=== PATIENT | male | born 1940 | race Hispanic/Latino ===

== ENCOUNTER 2018-02-16 10:48 | Emergency (ER) | payer MEDICARE ==
[2018-02-16 10:48] VITALS: BMI 32.5
--- NOTE | 2018-02-16 11:38 | ED PDOC ---
HPI: General Adult Time Seen by Provider: 02/16/18 11:14 Chief Complaint (Nursing): ENT Problem History Per: Patient Additional Complaint(s): Pt. states yesterday he woke up with dry blood on his nose. States he takes Coumadin 4mg daily for his "heart." Further states he contacted Dr. Mari today to see if he should take his daily dose of Coumadin but was instructed to come to ED instead for repeat blood work. Currently without any bleeding. Offers no complaints at this time. Denies headache, cough, congestion, fever, weakness. Past Medical History Reviewed: Historical Data, Nursing Documentation, Vital Signs Vital Signs: Last Vital Signs Temp 97.5 F L 02/16/18 11:28 Pulse 96 H 02/16/18 11:28 Resp 18 02/16/18 11:28 BP 139/86 02/16/18 11:28 Pulse Ox 99 02/16/18 11:28 - Medical History PMH: Arthritis, Atrial Fibrillation, CHF, Diabetes, HTN Denies: COPD, Hypercholesterolemia, Hypothyroidism, Chronic Kidney Disease, Rheumatoid Arthritis - Family History Family History: States: No Known Family Hx - Home Medications Home Medications: Ambulatory Orders Medication Instructions Recorded RX: Rosuvastatin Calcium [Crestor] 10 mg PO HS 06/01/14 Acetaminophen [Tylenol 325mg tab] 650 mg PO Q4 01/11/16 Amoxicillin/Clavulanate [Augmentin 1 tab PO BID #14 tab 01/15/16 875 MG-125 MG] Metronidazole [Flagyl] 500 mg PO Q8H #21 tablet 01/15/16 RX: MetFORMIN [glucoPHAGE] 1,000 mg PO BID #0 tab 01/15/16 RX: Metoprolol Tartrate [Lopressor] 100 mg PO BID #0 tab 01/15/16 RX: Multivit-Min/FA/Lycopen/Lutein 1 tab PO DAILY #0 tablet 01/15/16 [Centrum Silver Tablet] RX: Ranitidine HCl [Zantac] 150 mg PO BID #0 tablet 01/15/16 RX: SITagliptin [Januvia] 100 mg PO HS #0 tab 01/15/16 RX: Tamsulosin [Flomax] 0.4 mg PO BID #0 cap 01/15/16 RX: Triamterene/Hydrochlorothiazid 2 cap PO DAILY #0 capsule 01/15/16 [Triamterene-Hctz 37.5-25 mg Cp] RX: Warfarin [Coumadin] 4 mg PO HS #0 tab 01/15/16 - Allergies Allergies/Adverse Reactions: Allergies Allergy/AdvReac Type Severity Reaction Status Date / Time heparin Allergy RASH Verified 02/16/18 11:10 Review of Systems ROS Statement: Except As Marked, All Systems Reviewed And Found Negative Physical Exam - Physical Exam Appears: Positive for: Well, Non-toxic, No Acute Distress Head Exam: Positive for: ATRAUMATIC, NORMAL INSPECTION, NORMOCEPHALIC Skin: Positive for: Normal Color, Warm, Rash Eye Exam: Positive for: EOMI, Normal appearance, PERRL ENT: Positive for: Normal ENT Inspection, Other (no blood in nostrils; no septal hematoma b/l). Negative for: Pharyngeal Erythema, Tonsillar Exudate, Tonsillar Swelling Neck: Positive for: Normal, Painless ROM Cardiovascular/Chest: Positive for: Regular Rate, Rhythm. Negative for: Tachy cardia Respiratory: Positive for: Normal Breath Sounds Neurologic/Psych: Positive for: Alert, Oriented (x3). Negative for: Aphasia, Facial Droop - Laboratory Results Result Diagrams: 02/16/18 12:00 02/16/18 12:00 - ECG O2 Sat by Pulse Oximetry: 99 - Progress ED Course And Treament: Labs ordered. Case and results d/w Dr. Mari who recommends continuing Coumadin as previously precribed Coumadin 4mg daily. Pt. and informed of plan and both agree. Disposition - Clinical Impression Clinical Impression: Epistaxis - Patient ED Disposition Is Patient to be Admitted: No - Disposition Referrals: Karl Mari MD [Family Provider] - Disposition: Routine/Home Disposition Time: 13:00 Condition: STABLE Additional Instructions: CONTINUE TAKING YOUR COUMADIN PREVIOUSLY PRESCRIBED BY DR. MARI FOLLOW UP WITH DR. MARI FOR FURTHER EVALUATION RETURN TO ED IMMEDIATELY IF SYMPTOMS WORSEN EULA MADRIGAL, thank you for letting us take care of you today. Your provider was Luis Ly MD and you were treated for NOSE BLEED. The emergency medical care you received today was directed at your acute symptoms. If you were prescribed any medication, please fill it and take as directed. It may take several days for your symptoms to resolve. Return to the Emergency Department if your symptoms worsen, do not improve, or if you have any other problems. Please contact your doctor or call one of the physicians/clinics you have been referred to that are listed on the Patient Visit Information form that is included in your discharge packet. Bring any paperwork you were given at discharge with you along with any medications you are taking to your follow up visit. Our treatment cannot replace ongoing medical care by a primary care provider outside of the emergency department. Thank you for allowing the [facility] team to be part of your care today. If you had an X-Ray or CT scan: A Radiologist will review the ED reading if any change in treatment is needed we will contact you. If you had a blood, urine, or wound culture: It will take several days for the results, if any change in treatment is needed we will contact you. If you had an STI test: It will take 48 hours for the results. Please call after 1 week if you have not heard back. Instructions: Nosebleeds (DC) Forms: [employer] (Vietnamese)
[2018-02-16 12:29] LABS: BASO # 0.1 K/uL (0.0-0.2); BASO % 0.6 % (0.0-2.0); EOS # 0.2 K/uL (0.0-0.7); HEMOGLOBIN 13.6 g/dL (12.0-18.0); LYMPH # 1.1 K/uL (1.0-4.3); LYMPH % 11.7 % (20.0-40.0); MEAN CELL VOLUME 93.5 fl (80.0-94.0); MEAN CORPUSCULAR HGB CONC 34.2 g/dL (33.0-37.0); MEAN PLATELET VOLUME 8.6 fl (7.2-11.7); MONO # 0.5 K/uL (0.0-0.8); MONO % 5.5 % (0.0-10.0); NEUT # 7.4 K/uL (1.8-7.0); NEUT % 80.2 % (50.0-75.0); RBC 4.25 Mil/uL (4.40-5.90); RED CELL DISTRIBUTION WIDTH 13.7 % (11.5-14.5); WHITE BLOOD COUNT 9.2 K/uL (4.8-10.8)
[2018-02-16 12:35] LABS: INR 2.1; PROTHROMBIN TIME 23.8 Seconds (9.8-13.1)
[2018-02-16 12:38] LABS: PARTIAL THROMBOPLASTIN TIME 36.2 Seconds (25.6-37.1)
[2018-02-16 12:40] LABS: ALB/GLOB RATIO 1.4 (1.0-2.1); ALBUMIN 4.3 g/dL (3.5-5.0); ALT/SGPT 22 U/L (21-72); AST/SGOT 21 U/L (17-59); BLOOD UREA NITROGEN 9 mg/dl (9-20); CALCIUM 9.4 mg/dL (8.4-10.2); GFR NON-AFRICAN AMERICAN > 60
[2018-02-16 13:22] VITALS: BP 121/73; PULSE 86; RESP 19; TEMP 97.8
[2018-02-16 15:25] VITALS: O2SAT 99
== END 2018-02-16 13:15 | disposition home or self-care (01) ==
LOC: H.ER 10:48
DX: R04.0 Epistaxis (principal); E11.9 Type 2 diabetes mellitus without complications; Z79.84 Long term (current) use of oral hypoglycemic drugs; I11.0 Hypertensive heart disease with heart failure; I48.91 Unspecified atrial fibrillation; I50.9 Heart failure, unspecified; Z79.01 Long term (current) use of anticoagulants

== ENCOUNTER 2018-03-24 14:53 | Emergency (ER) | payer MEDICARE ==
[2018-03-24 14:54] VITALS: BMI 32.5
[2018-03-24 15:15] VITALS: RESP 18
--- NOTE | 2018-03-24 15:48 | ED PDOC ---
HPI: General Adult Time Seen by Provider: 03/24/18 15:45 Chief Complaint (Nursing): Lower Extremity Problem/Injury Chief Complaint (Provider): cellulitis History Per: Family (78 y/o male h/o DM sent by Dr. Mancilla for bloodwork/xry and iv antibiotics. No fevers/chills. Has had ongoing blisters on both feet.) Past Medical History Reviewed: Historical Data, Nursing Documentation, Vital Signs Vital Signs: Last Vital Signs Temp 97.9 F 03/24/18 15:11 Pulse 93 H 03/24/18 15:11 Resp 18 03/24/18 15:11 BP 164/77 H 03/24/18 15:11 Pulse Ox 98 03/24/18 15:11 - Medical History PMH: Arthritis, Atrial Fibrillation, CHF, Diabetes, HTN Denies: COPD, Hypercholesterolemia, Hypothyroidism, Chronic Kidney Disease, Rheumatoid Arthritis - Family History Family History: States: Unknown Family Hx - Home Medications Home Medications: Ambulatory Orders Medication Instructions Recorded Rosuvastatin Calcium [Crestor] 10 mg PO HS 06/01/14 MetFORMIN [glucoPHAGE] 1,000 mg PO BID #0 tab 01/15/16 Triamterene/Hydrochlorothiazid 2 cap PO DAILY #0 capsule 01/15/16 [Triamterene-Hctz 37.5-25 mg Cp] Donepezil [Aricept] 5 mg PO DAILY 03/24/18 Pantoprazole Sodium [Protonix] 40 mg PO DAILY 03/24/18 Ranitidine HCl [Zantac] 300 mg PO DAILY 03/24/18 SITagliptin [Januvia] 100 mg PO DAILY 03/24/18 Tamsulosin [Flomax] 0.4 mg PO DAILY 03/24/18 Valsartan/Hydrochlorothiazide 1 tab PO DAILY 03/24/18 [Diovan Hct 160-12.5 mg Tab] Warfarin [Coumadin] 4 mg PO DAILY 03/24/18 - Allergies Allergies/Adverse Reactions: Allergies Allergy/AdvReac Type Severity Reaction Status Date / Time heparin Allergy RASH Verified 03/24/18 15:10 Review of Systems ROS Statement: Except As Marked, All Systems Reviewed And Found Negative Physical Exam - Reviewed Nursing Documentation Reviewed: Yes Vital Signs Reviewed: Yes - Physical Exam Appears: Positive for: Well, Non-toxic, No Acute Distress Head Exam: Positive for: ATRAUMATIC, NORMAL INSPECTION, NORMOCEPHALIC Skin: Positive for: Normal Color, Warm, DRY Eye Exam: Positive for: EOMI, Normal appearance, PERRL ENT: Positive for: Normal ENT Inspection Neck: Positive for: Normal, Painless ROM Cardiovascular/Chest: Positive for: Regular Rate, Rhythm Respiratory: Positive for: CNT, Normal Breath Sounds Gastrointestinal/Abdominal: Positive for: Normal Exam, Soft Back: Positive for: Normal Inspection Extremity: Positive for: Normal ROM Neurologic/Psych: Positive for: Alert, Oriented - Laboratory Results Result Diagrams: 03/24/18 16:39 03/24/18 16:39 - ECG O2 Sat by Pulse Oximetry: 98 - Progress ED Course And Treament: SEEN BY PODIATRY RESIDENT. AFTER REVIEW OF XRY AND BLOODWORK AND DISCUSSION WITH DR. MANCILLA, SHE RECOMMENDS IV ZOSYN ONE DOSE AND PATIENT TO F/U WITH DR MANCILLA. NO ANTIBIOTICS RECOMMENDED. Disposition - Clinical Impression Clinical Impression: Wound of foot - Patient ED Disposition Is Patient to be Admitted: No - Disposition Disposition: Routine/Home Disposition Time: 17:50 Condition: FAIR Additional Instructions: FOLLOW UP WITH DR. MANCILLA Instructions: Wound Care (DC)
--- NOTE | 2018-03-24 16:21 | RAD ---
Date of service: 03/24/2018 HISTORY: routine COMPARISON: No prior. FINDINGS: LUNGS: Diminished inspiratory volume bilaterally. No definite infiltrates. PLEURA: No significant pleural effusion identified, no pneumothorax apparent. CARDIOVASCULAR: Calcific atherosclerotic changes are seen related to the thoracic aorta. Interval cardiomegaly not excluded. No pulmonary vascular congestion. OSSEOUS STRUCTURES: No significant abnormalities. VISUALIZED UPPER ABDOMEN: Normal. OTHER FINDINGS: None. IMPRESSION: Interval cardiomegaly not excluded. No interval pulmonary vascular congestion. No acute infiltrates bilaterally.
--- NOTE | 2018-03-24 16:27 | CP.PCM.CON ---
History of Present Illness - History of Present Illness History of Present Illness: Podiatry consult note for Dr. Mancilla, 78 yo male seen and evaluated in the ED for multiple toe blisters on both feet. Patient is seen AAOx3 and in NAD accompanied by his . Patients states he has noticed these blisters in the last week possibly due to shoe gear. Patients states he walks around barefoot at home. Patient went to Dr. Mancilla, and was advised to come to the ED for further workup. Patient denies f/n/v/sob or pain. PMD: Dr. 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 Social: lives with , denies tobacco use and illicit drugs, occasional alcohol Past Patient History - Past Medical History & Family History Past Medical History?: Yes - Past Social History Smoking Status: Never Smoked - CARDIAC Hx Atrial Fibrillation: Yes Hx Congestive Heart Failure: Yes Hx Hypercholesterolemia: No Hx Hypertension: Yes - PULMONARY Hx Chronic Obstructive Pulmonary Disease (COPD): No - NEUROLOGICAL Hx Neurological Disorder: No Other/Comment: carotid stenosis - HEENT Hx HEENT Problems: No - RENAL Hx Chronic Kidney Disease: No - ENDOCRINE/METABOLIC Hx Hypothyroidism: No - HEMATOLOGICAL/ONCOLOGICAL Hx Blood Disorders: No - INTEGUMENTARY Hx Dermatological Problems: No - MUSCULOSKELETAL/RHEUMATOLOGICAL Hx Arthritis: Yes Hx Rheumatoid Arthritis: No - GASTROINTESTINAL Hx Gastrointestinal Disorders: No - GENITOURINARY/GYNECOLOGICAL Hx Genitourinary Disorders: No - PSYCHIATRIC Hx Psychophysiologic Disorder: No Hx Substance Use: No - SURGICAL HISTORY Hx Surgeries: Yes Other/Comment: carotis endarterectomy,right shoulder surgery with prosthesis - ANESTHESIA Hx Anesthesia: Yes Hx Anesthesia Reactions: No Hx Malignant Hyperthermia: No Meds Allergies/Adverse Reactions: Allergies Allergy/AdvReac Type Severity Reaction Status Date / Time heparin Allergy RASH Verified 03/24/18 15:10 Physical Exam - Constitutional Appears: Well, Non-toxic, No Acute Distress - Head Exam Head Exam: ATRAUMATIC, NORMOCEPHALIC - Eye Exam Eye Exam: Normal appearance Pupil Exam: NORMAL ACCOMODATION - ENT Exam ENT Exam: Mucous Membranes Moist - Extremities Exam Additional comments: Bilateral lower extremity: vascular: DP/pT 1/4 b/l, CFT <3 secs x 10, TG warm to cool, no edema or erythema noted derm: multiple serous fluid filled blisters noted on tip of toes 1-4 on right and 1-5 on left, no edema or erythema noted, no other open lesions noted, no clinical signs of infection ortho: no pain with palpation to the foot. neuro: protective sensation grossly intact. - Neurological Exam Neurological exam: Alert, Oriented x3 Results - Vital Signs Recent Vital Signs: Last Vital Signs Temp 97.9 F 03/24/18 15:11 Pulse 93 H 03/24/18 15:11 Resp 18 03/24/18 15:11 BP 164/77 H 03/24/18 15:11 Pulse Ox 98 03/24/18 15:48 - Labs Result Diagrams: 03/24/18 16:39 03/24/18 16:39 Assessment & Plan - Assessment and Plan (Free Text) Assessment: 78 yo male seen and evaluated for multiple serous fluid filled blisters on b/l feet, not infected. Plan: Patient seen and evaluated Chart, labs and vitals reviewed; absent leukocytosis afebrile X-rays reviewed; no acute osseous changes noted Blisters drained using sterile suture removal kit Foot dressed with betadine, and DSD Zosyn stat ordered Surgical shoe dispensed to the patient for both feet Patient advised to continue to follow up with Dr. Mancilla in his office Thank you for the consult
--- NOTE | 2018-03-24 16:29 | RAD ---
Date of service: 03/24/2018 PROCEDURE: Bilateral Feet Radiographs. HISTORY: r/o osteomyelitis COMPARISON: None. FINDINGS: BONES: No acute fracture, subluxation or dislocation identified bilaterally. No erosive changes bilaterally. Pes planus likely present both feet based on lateral projections. Calcifications are identified in the bilateral feet soft tissues as well as surrounding the ankles bilaterally. No erosive bony changes are appreciate that would indicate definitive osteomyelitis. MRI is available for follow-up as clinically warranted. Advanced degenerative changes seen is in the 1st metatarsophalangeal joints, right greater than left with lesser degenerative changes seen throughout the bilateral feet diffusely. Old healed fracture of the proximal phalanx right 3rd digit suggested. Bilateral plantar calcaneal spurring is identified. OTHER FINDINGS: None. IMPRESSION: No overt radiographic pattern to suggest osteomyelitis on acute or subacute basis old healed fracture suspected at the proximal phalanx right 3rd digit. Follow-up MRI is available for added characterization if clinically warranted. Diffuse degenerative disease throughout both the but particularly the bilateral 1st metatarsophalangeal joints, right greater than left.
[2018-03-24 16:41] LABS: BASO % 0.4 % (0.0-2.0); EOS # 0.2 K/uL (0.0-0.7); EOS % 1.8 % (0.0-4.0); HEMOGLOBIN 13.7 g/dL (12.0-18.0); LYMPH # 1.2 K/uL (1.0-4.3); MEAN CELL VOLUME 93.9 fl (80.0-94.0); MEAN CORPUSCULAR HEMOGLOBIN 31.7 pg (27.0-31.0); MEAN CORPUSCULAR HGB CONC 33.8 g/dL (33.0-37.0); MEAN PLATELET VOLUME 8.3 fl (7.2-11.7); MONO # 0.7 K/uL (0.0-0.8); MONO % 9.1 % (0.0-10.0); NEUT # 6.1 K/uL (1.8-7.0); NEUT % 73.7 % (50.0-75.0); NRBC % 0.1 % (0.0-0.0); RBC 4.31 Mil/uL (4.40-5.90); WHITE BLOOD COUNT 8.2 K/uL (4.8-10.8)
[2018-03-24 16:45] LABS: VENOUS BLOOD GAS BASE EXCESS 8.6 mmol/L (0.0-2.0); VENOUS BLOOD GAS PCO2 59 mmHg (40-60); VENOUS BLOOD GAS PO2 18 mm/Hg (30-55); VENOUS BLOOD PH 7.39 (7.32-7.43)
[2018-03-24] MEDS ORDERED: Piperacillin/Tazobact 3.375 GM in Sodium Chloride 0.9% 100 ML IVPB STA (16:52)
[2018-03-24 16:55] LABS: ALB/GLOB RATIO 1.2 (1.0-2.1); ALBUMIN 4.1 g/dL (3.5-5.0); ALT/SGPT 19 U/L (21-72); AST/SGOT 18 U/L (17-59); BLOOD UREA NITROGEN 8 mg/dl (9-20); CALCIUM 9.4 mg/dL (8.4-10.2); GFR NON-AFRICAN AMERICAN > 60
[2018-03-24 17:18] LABS: SQUAMOUS EPITHIAL < 1 /hpf (0-5); URINE BILIRUBIN NEGATIVE (NEGATIVE); URINE BLOOD NEGATIVE (NEGATIVE); URINE GLUCOSE (UA) NEG (NEGATIVE); URINE LEUKOCYTE ESTERASE SMALL Leu/uL (Negative); URINE PROTEIN NEGATIVE (NEGATIVE); URINE UROBILINOGEN 0.2-1.0 mg/dL (0.2-1.0)
[2018-03-24] MEDS ORDERED: Sodium Chloride 0.9% 1,000 ML IV STA (17:32)
[2018-03-24 17:41] LABS: URINE CLARITY SLIGHTLY CLOUDY (Clear); URINE COLOR YELLOW (YELLOW)
[2018-03-24] MEDS ORDERED: Piperacillin/Tazobact 3.375 gm Inj IVPB ONE (17:42)
[2018-03-24 19:46] VITALS: BP 140/72; PULSE 71; TEMP 98; O2SAT 100
--- NOTE | 2018-03-25 10:04 | CARD ---
APPROVED REPORT Date of service: 03/24/2018 EKG Measurement Heart [id number] <Conclusion> Atrial fibrillation Left axis deviation Right bundle branch block Abnormal ECG
== END 2018-03-24 19:43 | disposition home or self-care (01) ==
LOC: H.ER 14:53
DX: R23.8 Other skin changes (principal); E11.9 Type 2 diabetes mellitus without complications; I11.0 Hypertensive heart disease with heart failure; Z88.8 Allergy status to other drugs, medicaments and biological substances
CPT/HCPCS: 71045; 73630; 80053; 81003; 82803; 85025; 87040; 87070; 87086; 93005; 96374; 99284; J2543; J7030

== ENCOUNTER 2018-07-03 18:52 | Observation (INO) | payer MEDICARE ==
[2018-07-03 18:52] VITALS: BMI 32.5
[2018-07-03] MEDS ORDERED: Sodium Chloride 0.9% 1,000 ML IV STA ×2 (20:18→21:21)
[2018-07-03 20:56] LABS: VENOUS BLOOD GAS BASE EXCESS 5.8 mmol/L (0.0-2.0); VENOUS BLOOD GAS PCO2 50 mmHg (40-60); VENOUS BLOOD GAS PO2 31 mm/Hg (30-55); VENOUS BLOOD PH 7.41 (7.32-7.43)
[2018-07-03 20:57] LABS: BASO # 0.1 K/uL (0.0-0.2); BASO % 0.5 % (0.0-2.0); EOS # 0.1 K/uL (0.0-0.7); EOS % 0.7 % (0.0-4.0); HEMOGLOBIN 12.4 g/dL (12.0-18.0); LYMPH # 1.1 K/uL (1.0-4.3); LYMPH % 9.9 % (20.0-40.0); MEAN CELL VOLUME 90.8 fl (80.0-94.0); MEAN CORPUSCULAR HEMOGLOBIN 31.8 pg (27.0-31.0); MEAN CORPUSCULAR HGB CONC 35.1 g/dL (33.0-37.0); MEAN PLATELET VOLUME 8.5 fl (7.2-11.7); MONO # 0.6 K/uL (0.0-0.8); MONO % 4.9 % (0.0-10.0); NEUT # 9.5 K/uL (1.8-7.0); PLATELET COUNT 174 K/uL (130-400); RED CELL DISTRIBUTION WIDTH 13.6 % (11.5-14.5); WHITE BLOOD COUNT 11.3 K/uL (4.8-10.8)
[2018-07-03 21:01] LABS: ALB/GLOB RATIO 1.3 (1.0-2.1); ALBUMIN 3.9 g/dL (3.5-5.0); ALT/SGPT 17 U/L (21-72); AST/SGOT 19 U/L (17-59); BLOOD UREA NITROGEN 8 mg/dl (9-20); GFR NON-AFRICAN AMERICAN > 60
[2018-07-03 21:05] LABS: INR 1.7; PROTHROMBIN TIME 19.1 Seconds (9.8-13.1)
[2018-07-03 21:08] LABS: PARTIAL THROMBOPLASTIN TIME 38.5 Seconds (25.6-37.1)
[2018-07-03 21:13] LABS: B-TYPE NATRIURETIC PEPTIDE 599 pg/ml (0-900)
--- NOTE | 2018-07-03 21:21 | ED PDOC ---
HPI:Nausea, Vomiting, Diarrhea Time Seen by Provider: 07/03/18 19:55 Chief Complaint (Nursing): GI Problem Chief Complaint (Provider): GI Problem History Per: Patient History/Exam Limitations: no limitations Onset/Duration Of Symptoms: Days (x 1) Current Symptoms Are (Timing): Still Present Associated Symptoms: Nausea, Vomiting, Other (weakness) Additional Complaint(s): 78 year old male with a history of diabetes, HTN, allergies, diabetic foot ulcers bilaterally, atrial fibrillation presents to the ED with worsening weakness and nausea today associated with one episode of vomiting this morning. According to his and son, today he was acting more tired and less active. Patient follows with plate setter for daily dressing changes on his ulcers. They report compliance with medications. His son states that patient has a poor diet. Denies syncope, chest pain and abdominal pain. PMD: Dr. Karl Mari Crystallizer Operator: Dr. Chau Past Medical History Reviewed: Historical Data, Nursing Documentation, Vital Signs Vital Signs: Last Vital Signs Temp 98.5 F 07/03/18 19:29 Pulse 122 H 07/03/18 19:29 Resp 16 07/03/18 19:29 BP 152/73 H 07/03/18 19:29 Pulse Ox 95 07/03/18 19:29 Primary Care Provider: [facility] - Medical History PMH: Arthritis, Atrial Fibrillation, CHF, Diabetes, HTN Denies: COPD, Hypercholesterolemia, Hypothyroidism, Chronic Kidney Disease, Rheumatoid Arthritis - Surgical History Surgical History: No Surg Hx - Family History Family History: States: Unknown Family Hx - Home Medications Home Medications: Ambulatory Orders Medication Instructions Recorded Rosuvastatin Calcium [Crestor] 10 mg PO HS 06/01/14 MetFORMIN [glucoPHAGE] 1,000 mg PO BID #0 tab 01/15/16 Donepezil [Aricept] 5 mg PO DAILY 03/24/18 Pantoprazole Sodium [Protonix] 40 mg PO DAILY 03/24/18 SITagliptin [Januvia] 100 mg PO DAILY 03/24/18 Tamsulosin [Flomax] 0.4 mg PO DAILY 03/24/18 Warfarin [Coumadin] 4 mg PO ASDIR 03/24/18 Montelukast Sodium [Singulair] 10 mg PO HS 07/03/18 Triamterene/Hydrochlorothiazid 1 cap PO DAILY 05/17/19 [Triamterene-Hctz 37.5-25 mg Cp] Warfarin Sodium [Jantoven] 6 mg PO ASDIR 07/03/18 Acetaminophen [Tylenol 325mg tab] 650 mg PO Q6 PRN tab 07/04/18 Cefdinir [Omnicef] 300 mg PO BID #10 cap 07/04/18 - Allergies Allergies/Adverse Reactions: Allergies Allergy/AdvReac Type Severity Reaction Status Date / Time heparin Allergy RASH Verified 07/03/18 19:29 Review of Systems ROS Statement: Except As Marked, All Systems Reviewed And Found Negative Constitutional: Positive for: Weakness. Negative for: Fever, Other (syncope) Cardiovascular: Negative for: Chest Pain Gastrointestinal: Positive for: Nausea, Vomiting (x 1) Physical Exam - Reviewed Nursing Documentation Reviewed: Yes Vital Signs Reviewed: Yes - Physical Exam Appears: Positive for: No Acute Distress Head Exam: Positive for: ATRAUMATIC, NORMAL INSPECTION, NORMOCEPHALIC Skin: Positive for: Normal Color, Warm, Dry Eye Exam: Positive for: EOMI, Normal appearance, PERRL Cardiovascular/Chest: Positive for: Regular Rate, Rhythm. Negative for: Murmur Respiratory: Positive for: Normal Breath Sounds. Negative for: Respiratory Distress Gastrointestinal/Abdominal: Positive for: Normal Exam (large abdomen), Soft. Negative for: Tenderness, Mass, Guarding, Rebound Extremity: Positive for: Swelling (bilateral chronic edema to the legs with well healing ulcers to heels bilateral and both hallux) Neurological/Psych: Positive for: Awake, Alert, Normal Tone, Oriented. Negative for: Motor/Sensory Deficits - Laboratory Results Result Diagrams: 07/04/18 04:52 07/04/18 04:52 Lab Results: pO2 31 mm/Hg (30-55) 07/03/18 20:45 VBG pH 7.41 (7.32-7.43) 07/03/18 20:45 VBG pCO2 50 mmHg (40-60) 07/03/18 20:45 VBG HCO3 28.4 mmol/L 07/03/18 20:45 VBG Total CO2 33.2 mmol/L (22-28) H 07/03/18 20:45 VBG O2 Sat (Calc) 63.9 % (40-65) 07/03/18 20:45 VBG Base Excess 5.8 mmol/L (0.0-2.0) H 07/03/18 20:45 VBG Potassium 3.8 mmol/L (3.6-5.2) 07/03/18 20:45 Sodium 127.0 mmol/L (132-148) L 07/03/18 20:45 Chloride 91.0 mmol/L (98-107) L 07/03/18 20:45 Glucose 208 mg/dL (75-110) H 07/03/18 20:45 Lactate 2.8 mmol/L (0.7-2.1) H 07/03/18 20:45 FiO2 21.0 % 07/03/18 20:45 PT 19.1 Seconds (9.8-13.1) H 07/03/18 20:45 INR 1.7 07/03/18 20:45 APTT 38.5 Seconds (25.6-37.1) H 07/03/18 20:45 Troponin I < 0.0120 ng/mL (0.00-0.120) 07/03/18 20:45 NT-Pro-B Natriuret Pep 599 pg/ml (0-900) 07/03/18 20:45 Total Bilirubin 0.6 mg/dl (0.2-1.3) 07/03/18 20:45 AST 19 U/L (17-59) 07/03/18 20:45 ALT 17 U/L (21-72) L 07/03/18 20:45 Alkaline Phosphatase 50 U/L (38-126) 07/03/18 20:45 Total Protein 6.9 G/DL (6.3-8.2) 07/03/18 20:45 Albumin 3.9 g/dL (3.5-5.0) 07/03/18 20:45 Globulin 2.9 gm/dL (2.2-3.9) 07/03/18 20:45 Albumin/Globulin Ratio 1.3 (1.0-2.1) 07/03/18 20:45 - ECG ECG: Positive for: Interpreted By Me, Viewed By Me ECG Rhythm: Positive for: Atrial Fibrillation O2 Sat by Pulse Oximetry: 95 (RA) Pulse Ox Interpretation: Normal Medical Decision Making Medical Decision Makin:17 MDM: Worsening weakness with episodes of nausea and vomiting Mild hyperglycemic Will given IV fluids Lab workup Reassess Most likely admission Scribe Attestation: Documented by Jennyfer Egan, acting as a scribe for Yadira Torres MD. Provider Scribe Attestation: All medical record entries made by the Scribe were at my direction and personally dictated by me. I have reviewed the chart and agree that the record accurately reflects my personal performance of the history, physical exam, medical decision making, and the department course for this patient. I have also personally directed, reviewed, and agree with the discharge instructions and disposition. Disposition - Clinical Impression Clinical Impression: Dehydration, Weakness, Wound of foot - Disposition Disposition Time: 21:49 Condition: STABLE
[2018-07-03 21:49] LABS: SQUAMOUS EPITHIAL < 1 /hpf (0-5); URINE BILIRUBIN NEGATIVE (NEGATIVE); URINE BLOOD NEGATIVE (NEGATIVE); URINE CLARITY SLIGHTY-CLOUDY (Clear); URINE COLOR YELLOW (YELLOW); URINE GLUCOSE (UA) NEG (NEGATIVE); URINE LEUKOCYTE ESTERASE TRACE Leu/uL (Negative); URINE PROTEIN NEGATIVE (NEGATIVE); URINE UROBILINOGEN 0.2-1.0 mg/dL (0.2-1.0)
[2018-07-03 21:54] LABS: EOSINOPHIL 1 % (0-7); LYMPHOCYTE 11 % (20-50); MONOCYTE 6 % (0-10); NEUTROPHIL 82 % (42-75); PLATELET ESTIMATE NORMAL (NORMAL); TOTAL CELLS COUNTED 100
[2018-07-03 21:56] LABS: URINE AMORPHOUS SEDIMENT FEW /ul (<OCC); URINE BACTERIA FEW (<OCC)
--- NOTE | 2018-07-03 22:46 | CP.PCM.HP ---
<Brittnee Garcia - Last Filed: 07/03/18 23:26> History of Present Illness - History of Present Illness History of Present Illness: CC: weakness HPI: 78 YO Male with PMHx of Afib on warfarin, NIDDM type 2, HTN, carotid stenosis (S/p repair), hx of HIT, dementia, presents to ED for weakness. a nd son present by bedside states that patient was at his normal state of health until today when he started feeling weaker then usual. states that he has not been eating or drinking all day, been nauseous on/off throughout the day and around 4 PM he had 1 episode of emesis (NBNB). Additionally, patient felt chills today and has been urinary more frequently then usual. Denies pain (chest/abdom en/general), no palpitations, dysuria, dyspnea. PMD: Dr. Mari Cardiology: Dr. Chau PMHx: Afib on warfarin, NIDDM type 2, HTN, carotid stenosis (s/p revascularization) Heparin Induce Thrombocytopenia, urinary incontinence/BPH SHx: right shoulder surgery Meds: Warfarin as per directions, 6mg on odd days and 4mg on even days Social: lives with , denies tobacco use and illicit drugs, occasional alcohol Allegery: Heparin--HIT Present on Admission - Present on Admission Any Indicators Present on Admission: No Review of Systems - Constitutional Constitutional: Chills. absent: Fever - Cardiovascular Cardiovascular: absent: Chest Pain, Dyspnea - Respiratory Respiratory: absent: Cough, Dyspnea - Gastrointestinal Gastrointestinal: absent: Abdominal Pain, Diarrhea, Vomiting - Genitourinary Genitourinary: Urinary Frequency. absent: Change in Urinary Stream, Dysuria - Neurological Neurological: Weakness Past Patient History - Past Medical History & Family History Past Medical History?: Yes - Past Social History Smoking Status: Never Smoked Alcohol: None Drugs: Denies Home Situation {Lives}: With Family - CARDIAC Hx Atrial Fibrillation: Yes Hx Congestive Heart Failure: Yes Hx Hypercholesterolemia: No Hx Hypertension: Yes - PULMONARY Hx Chronic Obstructive Pulmonary Disease (COPD): No - NEUROLOGICAL Hx Neurological Disorder: No Other/Comment: carotid stenosis - HEENT Hx HEENT Problems: No - RENAL Hx Chronic Kidney Disease: No - ENDOCRINE/METABOLIC Hx Hypothyroidism: No - HEMATOLOGICAL/ONCOLOGICAL Hx Blood Disorders: No - INTEGUMENTARY Hx Dermatological Problems: No - MUSCULOSKELETAL/RHEUMATOLOGICAL Hx Arthritis: Yes Hx Rheumatoid Arthritis: No - GASTROINTESTINAL Hx Gastrointestinal Disorders: No - GENITOURINARY/GYNECOLOGICAL Hx Genitourinary Disorders: No - PSYCHIATRIC Hx Psychophysiologic Disorder: No Hx Substance Use: No - SURGICAL HISTORY Hx Surgeries: Yes Other/Comment: carotis endarterectomy,right shoulder surgery with prosthesis - ANESTHESIA Hx Anesthesia: Yes Hx Anesthesia Reactions: No Hx Malignant Hyperthermia: No Meds Allergies/Adverse Reactions: Allergies Allergy/AdvReac Type Severity Reaction Status Date / Time heparin Allergy RASH Verified 07/03/18 19:29 Physical Exam - Constitutional Appears: No Acute Distress, Other (awake and alert ) - Head Exam Head Exam: NORMAL INSPECTION - Eye Exam Eye Exam: EOMI, Normal appearance - ENT Exam ENT Exam: Mucous Membranes Moist - Respiratory Exam Respiratory Exam: Clear to Auscultation Bilateral, NORMAL BREATHING PATTERN. absent: Wheezes - Cardiovascular Exam Cardiovascular Exam: REGULAR RHYTHM, +S1, +S2 - GI/Abdominal Exam GI & Abdominal Exam: Distended, Normal Bowel Sounds, Soft. absent: Tenderness (obese ) - Extremities Exam Extremities exam: Negative for: calf tenderness Additional comments: open diabetic food ulcerations noted, does not look infected - Back Exam Back exam: absent: CVA tenderness (L), CVA tenderness (R) - Neurological Exam Neurological exam: Alert - Skin Skin Exam: Dry, Intact, Pallor Results - Vital Signs Recent Vital Signs: Last Vital Signs Temp 98.5 F 07/03/18 19:29 Pulse 122 H 07/03/18 19:29 Resp 16 07/03/18 19:29 BP 152/73 H 07/03/18 19:29 Pulse Ox 95 07/03/18 21:27 - Labs Result Diagrams: 07/03/18 20:45 07/03/18 20:45 Labs: Laboratory Results - last 24 hr 07/03/18 07/03/18 07/03/18 20:45 20:45 20:45 WBC 11.3 H RBC 3.90 L Hgb 12.4 Hct 35.4 MCV 90.8 D MCH 31.8 H MCHC 35.1 RDW 13.6 Plt Count 174 MPV 8.5 Neut % (Auto) 84.0 H Lymph % (Auto) 9.9 L [place] % (Auto) 4.9 Eos % (Auto) 0.7 Baso % (Auto) 0.5 Neut # (Auto) 9.5 H Lymph # (Auto) 1.1 [place] # (Auto) 0.6 Eos # (Auto) 0.1 Baso # (Auto) 0.1 Neutrophils % (Manual) 82 H Lymphocytes % (Manual) 11 L Monocytes % (Manual) 6 Eosinophils % (Manual) 1 Platelet Estimate Normal RBC Morphology Normal PT 19.1 H INR 1.7 APTT 38.5 H pO2 VBG pH VBG pCO2 VBG HCO3 VBG Total CO2 VBG O2 Sat (Calc) VBG Base Excess VBG Potassium Sodium 128 L Chloride 88 L Glucose Lactate FiO2 Potassium 4.0 Carbon Dioxide 29 Anion Gap 15 BUN 8 L Creatinine 0.5 L Est GFR ( Amer) > 60 Est GFR (Non-Af Amer) > 60 Random Glucose 203 H Calcium 9.0 Total Bilirubin 0.6 AST 19 ALT 17 L Alkaline Phosphatase 50 Troponin I < 0.0120 NT-Pro-B Natriuret Pep 599 Total Protein 6.9 Albumin 3.9 Globulin 2.9 Albumin/Globulin Ratio 1.3 Venous Blood Potassium Urine Color Urine Clarity Urine pH Ur Specific [place] Urine Protein Urine Glucose (UA) Urine Ketones Urine Blood Urine Nitrate Urine Bilirubin Urine Urobilinogen Ur Leukocyte Esterase Urine RBC (Auto) Urine Microscopic WBC Ur Squamous Epith Cells Amorphous Sediment Urine Bacteria 07/03/18 07/03/18 20:45 21:05 WBC RBC Hgb Hct MCV MCH MCHC RDW Plt Count MPV Neut % (Auto) Lymph % (Auto) [place] % (Auto) Eos % (Auto) Baso % (Auto) Neut # (Auto) Lymph # (Auto) [place] # (Auto) Eos # (Auto) Baso # (Auto) Neutrophils % (Manual) Lymphocytes % (Manual) Monocytes % (Manual) Eosinophils % (Manual) Platelet Estimate RBC Morphology PT INR APTT pO2 31 VBG pH 7.41 VBG pCO2 50 VBG HCO3 28.4 VBG Total CO2 33.2 H VBG O2 Sat (Calc) 63.9 VBG Base Excess 5.8 H VBG Potassium 3.8 Sodium 127.0 L Chloride 91.0 L Glucose 208 H Lactate 2.8 H FiO2 21.0 Potassium Carbon Dioxide Anion Gap BUN Creatinine Est GFR ( Amer) Est GFR (Non-Af Amer) Random Glucose Calcium Total Bilirubin AST ALT Alkaline Phosphatase Troponin I NT-Pro-B Natriuret Pep Total Protein Albumin Globulin Albumin/Globulin Ratio Venous Blood Potassium 3.8 Urine Color Yellow Urine Clarity Slighty-cloudy Urine pH 7.0 Ur Specific [place] 1.013 Urine Protein Negative Urine Glucose (UA) Neg Urine Ketones Negative Urine Blood Negative Urine Nitrate Negative Urine Bilirubin Negative Urine Urobilinogen 0.2-1.0 Ur Leukocyte Esterase Trace Urine RBC (Auto) 1 Urine Microscopic WBC 6 H Ur Squamous Epith Cells < 1 Amorphous Sediment Few H Urine Bacteria Few H - EKG Data EKG Interpreted by: Myself Rate: Normal (A fib with a rate of 82) Assessment & Plan - Assessment and Plan (Free Text) Assessment: Assessment/Plan: 78 YO Male with PMHx of Afib on warfarin, NIDDM type 2, HTN, carotid stenosis (S/p repair), hx of HIT, dementia is admitted for weakness. Generalized Weakness, non-focal -likely 2/2 to poor PO intake and diet -will r/o infectious as cause -CXR no acute infiltrates appreciated -UA no sig findings, follow up Ucx and bcx -elevated lactic acid likely from dehydration, follow up procalcitonin -CT head no acute intracranial finding, age related changes, follow up official reading in AM -will cont with IV fluids -encourage PO -supplement with ensure PO Hyponatremia, Hypochloremia -corrected Na is approx 130 -likely 2/2 to poor PO intake and dehydration -replace with IV fluids -follow up AM labs -consider urine electrolytes if persists or worsen A fib -chronic -not on any PO as noted on med reconciliation for rate control -consider BB for rate control as noted in past admission -c/w warfarin -cardiology consulted; follow up recs NIDDM -controlled -c/w home meds -sliding scale -hypoglycemia protcol HTN -chronic -c/w home meds Foot ulcers -podiatry consulted -Wound care consulted DVT prolx -on warfarin <Cheo South - Last Filed: 07/04/18 00:32> Results - Vital Signs Recent Vital Signs: Last Vital Signs Temp 98.5 F 07/03/18 19:29 Pulse 122 H 07/03/18 19:29 Resp 16 07/03/18 19:29 BP 152/73 H 07/03/18 19:29 Pulse Ox 95 07/03/18 21:27 - Labs Result Diagrams: 07/03/18 20:45 07/03/18 20:45 Labs: Laboratory Results - last 24 hr 07/03/18 07/03/18 07/03/18 20:45 20:45 20:45 WBC 11.3 H RBC 3.90 L Hgb 12.4 Hct 35.4 MCV 90.8 D MCH 31.8 H MCHC 35.1 RDW 13.6 Plt Count 174 MPV 8.5 Neut % (Auto) 84.0 H Lymph % (Auto) 9.9 L [place] % (Auto) 4.9 Eos % (Auto) 0.7 Baso % (Auto) 0.5 Neut # (Auto) 9.5 H Lymph # (Auto) 1.1 [place] # (Auto) 0.6 Eos # (Auto) 0.1 Baso # (Auto) 0.1 Neutrophils % (Manual) 82 H Lymphocytes % (Manual) 11 L Monocytes % (Manual) 6 Eosinophils % (Manual) 1 Platelet Estimate Normal RBC Morphology Normal PT 19.1 H INR 1.7 APTT 38.5 H pO2 VBG pH VBG pCO2 VBG HCO3 VBG Total CO2 VBG O2 Sat (Calc) VBG Base Excess VBG Potassium Sodium 128 L Chloride 88 L Glucose Lactate FiO2 Potassium 4.0 Carbon Dioxide 29 Anion Gap 15 BUN 8 L Creatinine 0.5 L Est GFR ( Amer) > 60 Est GFR (Non-Af Amer) > 60 POC Glucose (mg/dL) Random Glucose 203 H Calcium 9.0 Total Bilirubin 0.6 AST 19 ALT 17 L Alkaline Phosphatase 50 Troponin I < 0.0120 NT-Pro-B Natriuret Pep 599 Total Protein 6.9 Albumin 3.9 Globulin 2.9 Albumin/Globulin Ratio 1.3 TSH 3rd Generation Venous Blood Potassium Urine Color Urine Clarity Urine pH Ur Specific [place] Urine Protein Urine Glucose (UA) Urine Ketones Urine Blood Urine Nitrate Urine Bilirubin Urine Urobilinogen Ur Leukocyte Esterase Urine RBC (Auto) Urine Microscopic WBC Ur Squamous Epith Cells Amorphous Sediment Urine Bacteria 07/03/18 07/03/18 07/03/18 20:45 21:05 23:14 WBC RBC Hgb Hct MCV MCH MCHC RDW Plt Count MPV Neut % (Auto) Lymph % (Auto) [place] % (Auto) Eos % (Auto) Baso % (Auto) Neut # (Auto) Lymph # (Auto) [place] # (Auto) Eos # (Auto) Baso # (Auto) Neutrophils % (Manual) Lymphocytes % (Manual) Monocytes % (Manual) Eosinophils % (Manual) Platelet Estimate RBC Morphology PT INR APTT pO2 31 VBG pH 7.41 VBG pCO2 50 VBG HCO3 28.4 VBG Total CO2 33.2 H VBG O2 Sat (Calc) 63.9 VBG Base Excess 5.8 H VBG Potassium 3.8 Sodium 127.0 L Chloride 91.0 L Glucose 208 H Lactate 2.8 H FiO2 21.0 Potassium Carbon Dioxide Anion Gap BUN Creatinine Est GFR ( Amer) Est GFR (Non-Af Amer) POC Glucose (mg/dL) Random Glucose Calcium Total Bilirubin AST ALT Alkaline Phosphatase Troponin I NT-Pro-B Natriuret Pep Total Protein Albumin Globulin Albumin/Globulin Ratio TSH 3rd Generation 2.40 Venous Blood Potassium 3.8 Urine Color Yellow Urine Clarity Slighty-cloudy Urine pH 7.0 Ur Specific [place] 1.013 Urine Protein Negative Urine Glucose (UA) Neg Urine Ketones Negative Urine Blood Negative Urine Nitrate Negative Urine Bilirubin Negative Urine Urobilinogen 0.2-1.0 Ur Leukocyte Esterase Trace Urine RBC (Auto) 1 Urine Microscopic WBC 6 H Ur Squamous Epith Cells < 1 Amorphous Sediment Few H Urine Bacteria Few H 07/03/18 23:35 WBC RBC Hgb Hct MCV MCH MCHC RDW Plt Count MPV Neut % (Auto) Lymph % (Auto) [place] % (Auto) Eos % (Auto) Baso % (Auto) Neut # (Auto) Lymph # (Auto) [place] # (Auto) Eos # (Auto) Baso # (Auto) Neutrophils % (Manual) Lymphocytes % (Manual) Monocytes % (Manual) Eosinophils % (Manual) Platelet Estimate RBC Morphology PT INR APTT pO2 VBG pH VBG pCO2 VBG HCO3 VBG Total CO2 VBG O2 Sat (Calc) VBG Base Excess VBG Potassium Sodium Chloride Glucose Lactate FiO2 Potassium Carbon Dioxide Anion Gap BUN Creatinine Est GFR ( Amer) Est GFR (Non-Af Amer) POC Glucose (mg/dL) 153 H Random Glucose Calcium Total Bilirubin AST ALT Alkaline Phosphatase Troponin I NT-Pro-B Natriuret Pep Total Protein Albumin Globulin Albumin/Globulin Ratio TSH 3rd Generation Venous Blood Potassium Urine Color Urine Clarity Urine pH Ur Specific [place] Urine Protein Urine Glucose (UA) Urine Ketones Urine Blood Urine Nitrate Urine Bilirubin Urine Urobilinogen Ur Leukocyte Esterase Urine RBC (Auto) Urine Microscopic WBC Ur Squamous Epith Cells Amorphous Sediment Urine Bacteria Assessment & Plan - Assessment and Plan (Free Text) Plan: Agree with assessment and plan as per above. The goals of care were discussed, this is a gentleman that came in because of generalized weakness after several days of minimal intake to both solids and fluids. He came in with an episode of n/v and all hisotry obtained from family at bedside as he has a hx of dementia. All labs were looked at and imaging, will continue with goals of care as per above. - Date & Time Date: 07/04/18 Time: 00:32
[2018-07-03] MEDS ORDERED: Dextrose 50% SYRINGE Inj (50 ml) IV PRN (22:51)
[2018-07-03] MEDS ORDERED: Glucagon Recombinant 1 mg Inj IM PRN (22:51)
[2018-07-03] MEDS ORDERED: Sodium Chloride 0.9% 1,000 ML IV SCH (23:00)
[2018-07-04] MEDS ORDERED: Pneumococcal 23-Valent Vaccine IM ONE (01:05)
[2018-07-04] MEDS: Insulin Regular 100 units/ml SC SCH ×3 (06:31→17:04)
[2018-07-04 07:13] LABS: INR 1.6; PROTHROMBIN TIME 18.3 Seconds (9.8-13.1)
[2018-07-04 07:15] LABS: PARTIAL THROMBOPLASTIN TIME 39.2 Seconds (25.6-37.1)
[2018-07-04 07:42] LABS: BASO % 0.3 % (0.0-2.0); EOS # 0.2 K/uL (0.0-0.7); EOS % 3.3 % (0.0-4.0); HEMOGLOBIN 12.6 g/dL (12.0-18.0); LYMPH # 1.6 K/uL (1.0-4.3); LYMPH % 25.3 % (20.0-40.0); MEAN CELL VOLUME 91.3 fl (80.0-94.0); MEAN CORPUSCULAR HEMOGLOBIN 31.2 pg (27.0-31.0); MEAN CORPUSCULAR HGB CONC 34.2 g/dL (33.0-37.0); MEAN PLATELET VOLUME 8.5 fl (7.2-11.7); MONO # 0.6 K/uL (0.0-0.8); MONO % 9.3 % (0.0-10.0); NEUT % 61.8 % (50.0-75.0); NRBC % 0.1 % (0.0-0.0); RBC 4.02 Mil/uL (4.40-5.90); RED CELL DISTRIBUTION WIDTH 13.8 % (11.5-14.5); WHITE BLOOD COUNT 6.5 K/uL (4.8-10.8)
[2018-07-04 08:08] LABS: BLOOD UREA NITROGEN 5 mg/dl (9-20); CALCIUM 8.7 mg/dL (8.4-10.2); GFR NON-AFRICAN AMERICAN > 60
[2018-07-04] MEDS ORDERED: hydroCHLOROthiazide-Triamterene 25 mg-37.5 mg Cap UD PO SCH (09:00)
--- NOTE | 2018-07-04 09:10 | CP.PCM.CON ---
History of Present Illness - History of Present Illness History of Present Illness: This 78-year-old man is well-known to me over the last 10 years. He has a long-standing history of hypertension diabetes and dyslipidemia and has had atrial fibrillation for more than 10 years for which s he has been taking warfarin which she has often taken erratically. He has had a history of carotid disease for which she underwent carotid endarterectomy in 2015. He has had a history of heparin-induced thrombocytopenia. He is also a smoker but has quit smoking number of years back. The patient has developed short-term memory loss over the last couple of years. He also has an extremely unsteady gait for which he has been recommended to use a walker which she is quite reluctant to use. Consequently he often falls. He spends prolonged period of time sitting in a chair and consequently has had chronic pedal edema. He was brought to the emergency room when he kept repeating to his that he does not feel well. There were no specific complaints of any kind. The patient recognized me readily this morning and when asked how does he feel reports feeling quite well. He was alert and awake but was slightly confused regarding and surrounding his admission. Telemetry shows atrial fibrillation at moderate heart rates. His blood pressure was 114/74 mmHg. His jugular venous pressure was not elevated there was bilateral pedal edema with evidence of chronic venous stasis. There were superficial ulcers on the left heel. (The patient has recently undergone Doppler examination of his arterial circulation of lower extremities and was told it was adequate) the apex was not palpable the first and second heart sounds were distant but normal there was no gallop present and there were no rales. His abdomen was soft liver and spleen were not palpable. His electrocardiogram showed atrial fibrillation with evidence of a right bundle branch block. Review of his earlier cardiograms of 2016 show an normal QRS duration. There was a left posterior hemiblock. His blood count shows that his hemoglobin hematocrit were normal INR was subtherapeutic. BUN and creatinine were normal he had mild hyponatremia at admission which appears to have corrected. He there is mild hypokalemia I have ordered potassium replacement. Impression: Mild dementia. Ataxic gait with repeated falling. Chronic atrial fibrillation. Status post carotid endarterectomy. Hypertension diabetes mellitus and dyslipidemia. BPH. I have requested an echocardiogram to evaluate his left ventricular systolic function given the fact that a new right bundle branch block has been detected. The patient is stable from hemodynamical point of view and may be allowed to return home to continue his present medications. Past Patient History - Past Medical History & Family History Past Medical History?: Yes - Past Social History Smoking Status: Never Smoked - CARDIAC Hx Atrial Fibrillation: Yes Hx Congestive Heart Failure: Yes Hx Hypercholesterolemia: No Hx Hypertension: Yes - PULMONARY Hx Chronic Obstructive Pulmonary Disease (COPD): No - NEUROLOGICAL Hx Neurological Disorder: No - HEENT Hx HEENT Problems: No Hx Cataracts: Yes - RENAL Hx Chronic Kidney Disease: No - ENDOCRINE/METABOLIC Hx Diabetes Mellitus Type 2: Yes Hx Hypothyroidism: No - HEMATOLOGICAL/ONCOLOGICAL Hx Blood Disorders: No - INTEGUMENTARY Hx Dermatological Problems: No Other/Comment: Diabetic foot ulcer dry Right and left great toe. Diabetic foot ulcer left heel, moist - MUSCULOSKELETAL/RHEUMATOLOGICAL Hx Arthritis: Yes Hx Falls: Yes (Several years ago) Hx Rheumatoid Arthritis: No - GASTROINTESTINAL Hx Gastrointestinal Disorders: No - GENITOURINARY/GYNECOLOGICAL Hx Genitourinary Disorders: No - PSYCHIATRIC Hx Psychophysiologic Disorder: No Hx Substance Use: No - SURGICAL HISTORY Hx Surgeries: Yes Other/Comment: carotis endarterectomy,right shoulder surgery with prosthesis - ANESTHESIA Hx Anesthesia: Yes Hx Anesthesia Reactions: No Hx Malignant Hyperthermia: No Meds Allergies/Adverse Reactions: Allergies Allergy/AdvReac Type Severity Reaction Status Date / Time heparin Allergy RASH Verified 07/03/18 19:29 - Medications Medications: Current Medications Acetaminophen (Tylenol 325mg Tab) 650 mg PO Q6 PRN PRN Reason: Fever >100.4 F Atorvastatin Calcium (Lipitor) 20 mg PO HS SAUD Dextrose (Dextrose 50% Inj) 0 ml IV STAT PRN; Protocol PRN Reason: Hypoglycemia Protocol Dextrose (Glutose 15) 0 gm PO ONCE PRN; Protocol PRN Reason: Hypoglycemia Protocol Donepezil HCl (Aricept) 5 mg PO DAILY SAUD Famotidine (Pepcid) 40 mg PO DAILY [facility]UD Glucagon (Glucagen Diagnostic Kit) 0 mg IM STAT PRN; Protocol PRN Reason: Hypoglycemia Protocol Insulin Human Regular (Humulin R) 0 units SC [facility]; Protocol Last Admin: 07/04/18 06:31 Dose: Not Given Metformin HCl (Glucophage) 1,000 mg PO BID SAUD Montelukast Sodium (Singulair) 10 mg PO HS SAUD Ondansetron HCl (Zofran Tab) 4 mg PO Q6 PRN PRN Reason: Nausea/Vomiting Sitagliptin Phosphate (Januvia) 100 mg PO DAILY [facility] Tamsulosin HCl (Flomax) 0.4 mg PO DAILY [facility] Triamterene/HCTZ (Dyazide 25 Mg-37.5 Mg) 1 cap PO DAILY [facility] Warfarin Sodium (Coumadin) 6 mg PO DAILY@1700 ASUD; Protocol Stop: 07/05/18 17:01 Warfarin Sodium (Coumadin) 4 mg PO DAILY@1700 SAUD; Protocol Warfarin Sodium (Coumadin) 7.5 mg PO QD5 SAUD; Protocol Stop: 07/04/18 17:01 Results - Vital Signs Recent Vital Signs: Last Vital Signs Temp 97.9 F 07/04/18 08:11 Pulse 84 07/04/18 08:11 Resp 20 07/04/18 08:11 BP 141/69 07/04/18 08:11 Pulse Ox 97 07/04/18 08:11 - Labs Result Diagrams: 07/04/18 04:52 07/04/18 04:52 Labs: Laboratory Results - last 24 hr 07/03/18 07/03/18 07/03/18 20:15 20:45 20:45 WBC 11.3 H RBC 3.90 L Hgb 12.4 Hct 35.4 MCV 90.8 D MCH 31.8 H MCHC 35.1 RDW 13.6 Plt Count 174 MPV 8.5 Neut % (Auto) 84.0 H Lymph % (Auto) 9.9 L [place] % (Auto) 4.9 Eos % (Auto) 0.7 Baso % (Auto) 0.5 Neut # (Auto) 9.5 H Lymph # (Auto) 1.1 Coleman # (Auto) 0.6 Eos # (Auto) 0.1 Baso # (Auto) 0.1 Neutrophils % (Manual) 82 H Lymphocytes % (Manual) 11 L Monocytes % (Manual) 6 Eosinophils % (Manual) 1 Platelet Estimate Normal RBC Morphology Normal PT INR APTT pO2 VBG pH VBG pCO2 VBG HCO3 VBG Total CO2 VBG O2 Sat (Calc) VBG Base Excess VBG Potassium Sodium 128 L Chloride 88 L Glucose Lactate FiO2 Potassium 4.0 Carbon Dioxide 29 Anion Gap 15 BUN 8 L Creatinine 0.5 L Est GFR ( Amer) > 60 Est GFR (Non-Af Amer) > 60 POC Glucose (mg/dL) 213 H Random Glucose 203 H Calcium 9.0 Total Bilirubin 0.6 AST 19 ALT 17 L Alkaline Phosphatase 50 Troponin I < 0.0120 NT-Pro-B Natriuret Pep 599 Total Protein 6.9 Albumin 3.9 Globulin 2.9 Albumin/Globulin Ratio 1.3 TSH 3rd Generation Venous Blood Potassium Urine Color Urine Clarity Urine pH Ur Specific [place] Urine Protein Urine Glucose (UA) Urine Ketones Urine Blood Urine Nitrate Urine Bilirubin Urine Urobilinogen Ur Leukocyte Esterase Urine RBC (Auto) Urine Microscopic WBC Ur Squamous Epith Cells Amorphous Sediment Urine Bacteria 07/03/18 07/03/18 07/03/18 20:45 20:45 21:05 WBC RBC Hgb Hct MCV MCH MCHC RDW Plt Count MPV Neut % (Auto) Lymph % (Auto) [place] % (Auto) Eos % (Auto) Baso % (Auto) Neut # (Auto) Lymph # (Auto) [place] # (Auto) Eos # (Auto) Baso # (Auto) Neutrophils % (Manual) Lymphocytes % (Manual) Monocytes % (Manual) Eosinophils % (Manual) Platelet Estimate RBC Morphology PT 19.1 H INR 1.7 APTT 38.5 H pO2 31 VBG pH 7.41 VBG pCO2 50 VBG HCO3 28.4 VBG Total CO2 33.2 H VBG O2 Sat (Calc) 63.9 VBG Base Excess 5.8 H VBG Potassium 3.8 Sodium 127.0 L Chloride 91.0 L Glucose 208 H Lactate 2.8 H FiO2 21.0 Potassium Carbon Dioxide Anion Gap BUN Creatinine Est GFR ( Amer) Est GFR (Non-Af Amer) POC Glucose (mg/dL) Random Glucose Calcium Total Bilirubin AST ALT Alkaline Phosphatase Troponin I NT-Pro-B Natriuret Pep Total Protein Albumin Globulin Albumin/Globulin Ratio TSH 3rd Generation Venous Blood Potassium 3.8 Urine Color Yellow Urine Clarity Slighty-cloudy Urine pH 7.0 Ur Specific [place] 1.013 Urine Protein Negative Urine Glucose (UA) Neg Urine Ketones Negative Urine Blood Negative Urine Nitrate Negative Urine Bilirubin Negative Urine Urobilinogen 0.2-1.0 Ur Leukocyte Esterase Trace Urine RBC (Auto) 1 Urine Microscopic WBC 6 H Ur Squamous Epith Cells < 1 Amorphous Sediment Few H Urine Bacteria Few H 07/03/18 07/03/18 07/04/18 23:14 23:35 04:52 WBC 6.5 RBC 4.02 L Hgb 12.6 Hct 36.7 MCV 91.3 MCH 31.2 H MCHC 34.2 RDW 13.8 Plt Count 166 MPV 8.5 Neut % (Auto) 61.8 Lymph % (Auto) 25.3 [place] % (Auto) 9.3 Eos % (Auto) 3.3 Baso % (Auto) 0.3 Neut # (Auto) 4.0 Lymph # (Auto) 1.6 Coleman # (Auto) 0.6 Eos # (Auto) 0.2 Baso # (Auto) 0.0 Neutrophils % (Manual) Lymphocytes % (Manual) Monocytes % (Manual) Eosinophils % (Manual) Platelet Estimate RBC Morphology PT INR APTT pO2 VBG pH VBG pCO2 VBG HCO3 VBG Total CO2 VBG O2 Sat (Calc) VBG Base Excess VBG Potassium Sodium Chloride Glucose Lactate FiO2 Potassium Carbon Dioxide Anion Gap BUN Creatinine Est GFR ( Amer) Est GFR (Non-Af Amer) POC Glucose (mg/dL) 153 H Random Glucose Calcium Total Bilirubin AST ALT Alkaline Phosphatase Troponin I NT-Pro-B Natriuret Pep Total Protein Albumin Globulin Albumin/Globulin Ratio TSH 3rd Generation 2.40 Venous Blood Potassium Urine Color Urine Clarity Urine pH Ur Specific [place] Urine Protein Urine Glucose (UA) Urine Ketones Urine Blood Urine Nitrate Urine Bilirubin Urine Urobilinogen Ur Leukocyte Esterase Urine RBC (Auto) Urine Microscopic WBC Ur Squamous Epith Cells Amorphous Sediment Urine Bacteria 07/04/18 07/04/18 07/04/18 04:52 04:52 06:16 WBC RBC Hgb Hct MCV MCH MCHC RDW Plt Count MPV Neut % (Auto) Lymph % (Auto) [place] % (Auto) Eos % (Auto) Baso % (Auto) Neut # (Auto) Lymph # (Auto) [place] # (Auto) Eos # (Auto) Baso # (Auto) Neutrophils % (Manual) Lymphocytes % (Manual) Monocytes % (Manual) Eosinophils % (Manual) Platelet Estimate RBC Morphology PT 18.3 H INR 1.6 APTT 39.2 H pO2 VBG pH VBG pCO2 VBG HCO3 VBG Total CO2 VBG O2 Sat (Calc) VBG Base Excess VBG Potassium Sodium 132 Chloride 92 L Glucose Lactate FiO2 Potassium 3.4 L Carbon Dioxide 31 H Anion Gap 12 BUN 5 L Creatinine 0.5 L Est GFR ( Amer) > 60 Est GFR (Non-Af Amer) > 60 POC Glucose (mg/dL) 133 H Random Glucose 125 H Calcium 8.7 Total Bilirubin AST ALT Alkaline Phosphatase Troponin I NT-Pro-B Natriuret Pep Total Protein Albumin Globulin Albumin/Globulin Ratio TSH 3rd Generation Venous Blood Potassium Urine Color Urine Clarity Urine pH Ur Specific [place] Urine Protein Urine Glucose (UA) Urine Ketones Urine Blood Urine Nitrate Urine Bilirubin Urine Urobilinogen Ur Leukocyte Esterase Urine RBC (Auto) Urine Microscopic WBC Ur Squamous Epith Cells Amorphous Sediment Urine Bacteria
[2018-07-04] MEDS ORDERED: Potassium Chloride 20 mEq ER Tab PO SCH (10:00)
--- NOTE | 2018-07-04 10:54 | RAD ---
Date of service: 07/03/2018 HISTORY: possible admission COMPARISON: 03/24/2018. FINDINGS: LUNGS: No active pulmonary disease. PLEURA: No significant pleural effusion identified, no pneumothorax apparent. CARDIOVASCULAR: Atherosclerotic calcifications identified primarily aortic arch. Cardiomegaly. No evidence of acute, significant cardiovascular disease. OSSEOUS STRUCTURES: No significant abnormalities. VISUALIZED UPPER ABDOMEN: Normal. OTHER FINDINGS: None. IMPRESSION: No active disease. No significant interval change compared to the prior examination(s).
--- NOTE | 2018-07-04 12:21 | CT ---
Date of service: 07/03/2018 PROCEDURE: CT HEAD WITHOUT CONTRAST. HISTORY: dizziness, h/o stroke COMPARISON: 01/11/2016. TECHNIQUE: Axial computed tomography images were obtained through the head/brain without intravenous contrast. Supplemental Coronal and Sagittal projections created and reviewed. Radiation dose: Total exam DLP = 1870.07 mGy-cm. This CT exam was performed using one or more of the following dose reduction techniques: Automated exposure control, adjustment of the mA and/or kV according to patient size, and/or use of iterative reconstruction technique. FINDINGS: HEMORRHAGE: No intracranial hemorrhage. BRAIN: No mass effect or edema. Cortical and cerebellar atrophy, periventricular small vessel disease. VENTRICLES: Persistent ventricular dilatation unchanged. CALVARIUM: Unremarkable. PARANASAL SINUSES: Unremarkable as visualized. No significant inflammatory changes. MASTOID AIR CELLS: Unremarkable as visualized. No inflammatory changes. OTHER FINDINGS: None. IMPRESSION: No acute intracranial abnormalities. No significant findings to account for the clinical presentation. No significant interval change compared to the prior examination(s). Concordant results (preliminary interpretation) provided by Lucky Ant. Procedure Completed: 22:02. Preliminary Report: Interpreted and electronically signed: 22:52. Final Interpretation: 12:17. July 04, 2018.
--- NOTE | 2018-07-04 14:03 | CP.PCM.DIS ---
<Abhi DevriesnaiGarcia - Last Filed: 07/04/18 14:03> Provider - Provider Date of Admission: 07/03/18 21:49 Attending physician: Cheo South MD Consults: 07/03/18 21:41 Cardiology Consult Stat Comment: Consulting Provider: Vincent Chau V Consulting Physician: Vincent Chau V Reason for Consult: dizziness and weakness 07/03/18 22:38 Wound Care [Nursing Referral for Wound Care] Routine Comment: Physician Instructions: Reason For Exam: diabetic foot ulcers 07/03/18 22:40 Podiatry Consult Stat Comment: Consulting Provider: Ramila Cam Consulting Physician: Ramila Cam Reason for Consult: open foot ulcers Time Spent in preparation of Discharge (in minutes): 20 Diagnosis - Discharge Diagnosis (1) Dehydration Status: Acute Hospital Course - Lab Results Lab Results: Most Recent Lab Values WBC 6.5 K/uL (4.8-10.8) 07/04/18 04:52 RBC 4.02 Mil/uL (4.40-5.90) L 07/04/18 04:52 Hgb 12.6 g/dL (12.0-18.0) 07/04/18 04:52 Hct 36.7 % (35.0-51.0) 07/04/18 04:52 MCV 91.3 fl (80.0-94.0) 07/04/18 04:52 MCH 31.2 pg (27.0-31.0) H 07/04/18 04:52 MCHC 34.2 g/dL (33.0-37.0) 07/04/18 04:52 RDW 13.8 % (11.5-14.5) 07/04/18 04:52 Plt Count 166 K/uL (130-400) 07/04/18 04:52 MPV 8.5 fl (7.2-11.7) 07/04/18 04:52 Neut % (Auto) 61.8 % (50.0-75.0) 07/04/18 04:52 Lymph % (Auto) 25.3 % (20.0-40.0) 07/04/18 04:52 [place] % (Auto) 9.3 % (0.0-10.0) 07/04/18 04:52 Eos % (Auto) 3.3 % (0.0-4.0) 07/04/18 04:52 Baso % (Auto) 0.3 % (0.0-2.0) 07/04/18 04:52 Neut # (Auto) 4.0 K/uL (1.8-7.0) 07/04/18 04:52 Lymph # (Auto) 1.6 K/uL (1.0-4.3) 07/04/18 04:52 [place] # (Auto) 0.6 K/uL (0.0-0.8) 07/04/18 04:52 Eos # (Auto) 0.2 K/uL (0.0-0.7) 07/04/18 04:52 Baso # (Auto) 0.0 K/uL (0.0-0.2) 07/04/18 04:52 Neutrophils % (Manual) 82 % (42-75) H 07/03/18 20:45 Lymphocytes % (Manual) 11 % (20-50) L 07/03/18 20:45 Monocytes % (Manual) 6 % (0-10) 07/03/18 20:45 Eosinophils % (Manual) 1 % (0-7) 07/03/18 20:45 Platelet Estimate Normal (NORMAL) 07/03/18 20:45 RBC Morphology Normal (NORMAL) 07/03/18 20:45 PT 18.3 Seconds (9.8-13.1) H 07/04/18 04:52 INR 1.6 07/04/18 04:52 APTT 39.2 Seconds (25.6-37.1) H 07/04/18 04:52 pO2 31 mm/Hg (30-55) 07/03/18 20:45 VBG pH 7.41 (7.32-7.43) 07/03/18 20:45 VBG pCO2 50 mmHg (40-60) 07/03/18 20:45 VBG HCO3 28.4 mmol/L 07/03/18 20:45 VBG Total CO2 33.2 mmol/L (22-28) H 07/03/18 20:45 VBG O2 Sat (Calc) 63.9 % (40-65) 07/03/18 20:45 VBG Base Excess 5.8 mmol/L (0.0-2.0) H 07/03/18 20:45 VBG Potassium 3.8 mmol/L (3.6-5.2) 07/03/18 20:45 Sodium 127.0 mmol/L (132-148) L 07/03/18 20:45 Chloride 91.0 mmol/L (98-107) L 07/03/18 20:45 Glucose 208 mg/dL (75-110) H 07/03/18 20:45 Lactate 2.8 mmol/L (0.7-2.1) H 07/03/18 20:45 FiO2 21.0 % 07/03/18 20:45 Sodium 132 mmol/l (132-148) 07/04/18 04:52 Potassium 3.4 MMOL/L (3.6-5.0) L 07/04/18 04:52 Chloride 92 mmol/L (98-107) L 07/04/18 04:52 Carbon Dioxide 31 mmol/L (22-30) H 07/04/18 04:52 Anion Gap 12 (10-20) 07/04/18 04:52 BUN 5 mg/dl (9-20) L 07/04/18 04:52 Creatinine 0.5 mg/dl (0.8-1.5) L 07/04/18 04:52 Est GFR ( Amer) > 60 07/04/18 04:52 Est GFR (Non-Af Amer) > 60 07/04/18 04:52 POC Glucose (mg/dL) 276 mg/dL (65-110) H 07/04/18 12:07 Random Glucose 125 mg/dL (75-110) H 07/04/18 04:52 Calcium 8.7 mg/dL (8.4-10.2) 07/04/18 04:52 Total Bilirubin 0.6 mg/dl (0.2-1.3) 07/03/18 20:45 AST 19 U/L (17-59) 07/03/18 20:45 ALT 17 U/L (21-72) L 07/03/18 20:45 Alkaline Phosphatase 50 U/L (38-126) 07/03/18 20:45 Troponin I < 0.0120 ng/mL (0.00-0.120) 07/03/18 20:45 NT-Pro-B Natriuret Pep 599 pg/ml (0-900) 07/03/18 20:45 Total Protein 6.9 G/DL (6.3-8.2) 07/03/18 20:45 Albumin 3.9 g/dL (3.5-5.0) 07/03/18 20:45 Globulin 2.9 gm/dL (2.2-3.9) 07/03/18 20:45 Albumin/Globulin Ratio 1.3 (1.0-2.1) 07/03/18 20:45 TSH 3rd Generation 2.40 mIU/ML (0.46-4.68) 07/03/18 23:14 Venous Blood Potassium 3.8 mmol/L (3.6-5.2) 07/03/18 20:45 Urine Color Yellow (YELLOW) 07/03/18 21:05 Urine Clarity Slighty-cloudy (Clear) 07/03/18 21:05 Urine pH 7.0 (5.0-8.0) 07/03/18 21:05 Ur Specific [place] 1.013 (1.003-1.030) 07/03/18 21:05 Urine Protein Negative mg/dL (NEGATIVE) 07/03/18 21:05 Urine Glucose (UA) Neg mg/dL (NEGATIVE) 07/03/18 21:05 Urine Ketones Negative mg/dL (NEGATIVE) 07/03/18 21:05 Urine Blood Negative (NEGATIVE) 07/03/18 21:05 Urine Nitrate Negative (NEGATIVE) 07/03/18 21:05 Urine Bilirubin Negative (NEGATIVE) 07/03/18 21:05 Urine Urobilinogen 0.2-1.0 mg/dL (0.2-1.0) 07/03/18 21:05 Ur Leukocyte Esterase Trace Edie/uL (Negative) 07/03/18 21:05 Urine RBC (Auto) 1 /hpf (0-3) 07/03/18 21:05 Urine Microscopic WBC 6 /hpf (0-5) H 07/03/18 21:05 Ur Squamous Epith Cells < 1 /hpf (0-5) 07/03/18 21:05 Amorphous Sediment Few /ul (<OCC) H 07/03/18 21:05 Urine Bacteria Few (<OCC) H 07/03/18 21:05 - Hospital Course Hospital Course: 78 YO Male with PMHx of Afib on warfarin, NIDDM type 2, HTN, carotid stenosis (S/p repair), hx of HIT, dementia is admitted for weakness most likely due to poor intake, and vomiting. -CXR no acute infiltrates appreciated -UA no sig findings -Procalcitonin negative -Ct no acute intracranial finding -Echo WNL Due to patient hx of A-fib, Cardiology consulted, echo reviewed, patient was cleared by cardiology Patient have a chronic LEFT heel black ulcer 2x2 noted, patient is following Podiatry, Patient will follow up with Podiatry on Friday. Patient was seen and examined today, no acute event overnight. Patient blood lab improved. Will discharge home to follow up with PCP Weakness possible due to poor intake, and vomiting. Patient able to tolerate food with no N/V Patient clear to be discharge Follow up with PCP in 2-3 days Follow up with Podiatry on Friday Discharge Exam - Head Exam Head Exam: NORMAL INSPECTION - Eye Exam Eye Exam: EOMI, Normal appearance, PERRL Pupil Exam: NORMAL ACCOMODATION, PERRL - Respiratory Exam Respiratory Exam: Clear to PA & Lateral, NORMAL BREATHING PATTERN - Cardiovascular Exam Cardiovascular Exam: REGULAR RHYTHM, +S1, +S2 - GI/Abdominal Exam GI & Abdominal Exam: Normal Bowel Sounds, Unremarkable - Extremities Exam Extremities exam: full ROM Additional comments: LEFT HEEL black ulcer 2x2cm noted, no erythema, nontender no discharge noted. - Neurological Exam Neurological exam: Alert, Normal Gait - Psychiatric Exam Psychiatric exam: Normal Affect, Normal Mood - Skin Skin Exam: Dry, Intact, Normal Color, Warm Discharge Plan - Follow Up Plan Condition: STABLE Disposition: HOME/ ROUTINE Additional Instructions: Patient need to follow up with Podiatry on Friday- Dr Mancilla F/U pcp in 2-3 days. ff up with Dr Chau next wk Hold Dyazide for 1 day Referrals: Han Mancilla DPM [Staff Provider] - <Tiffany Chaudhry - Last Filed: 07/04/18 16:12> Provider - Provider Date of Admission: 07/03/18 21:49 Attending physician: Cheo South MD Consults: 07/03/18 21:41 Cardiology Consult Stat Comment: Consulting Provider: Vincent Chau V Consulting Physician: Vincent Chau V Reason for Consult: dizziness and weakness 07/03/18 22:38 Wound Care [Nursing Referral for Wound Care] Routine Comment: Physician Instructions: Reason For Exam: diabetic foot ulcers 07/03/18 22:40 Podiatry Consult Stat Comment: Consulting Provider: Ramila Cam Consulting Physician: Ramila Cam Reason for Consult: open foot ulcers Hospital Course - Lab Results Lab Results: Most Recent Lab Values WBC 6.5 K/uL (4.8-10.8) 07/04/18 04:52 RBC 4.02 Mil/uL (4.40-5.90) L 07/04/18 04:52 Hgb 12.6 g/dL (12.0-18.0) 07/04/18 04:52 Hct 36.7 % (35.0-51.0) 07/04/18 04:52 MCV 91.3 fl (80.0-94.0) 07/04/18 04:52 MCH 31.2 pg (27.0-31.0) H 07/04/18 04:52 MCHC 34.2 g/dL (33.0-37.0) 07/04/18 04:52 RDW 13.8 % (11.5-14.5) 07/04/18 04:52 Plt Count 166 K/uL (130-400) 07/04/18 04:52 MPV 8.5 fl (7.2-11.7) 07/04/18 04:52 Neut % (Auto) 61.8 % (50.0-75.0) 07/04/18 04:52 Lymph % (Auto) 25.3 % (20.0-40.0) 07/04/18 04:52 [place] % (Auto) 9.3 % (0.0-10.0) 07/04/18 04:52 Eos % (Auto) 3.3 % (0.0-4.0) 07/04/18 04:52 Baso % (Auto) 0.3 % (0.0-2.0) 07/04/18 04:52 Neut # (Auto) 4.0 K/uL (1.8-7.0) 07/04/18 04:52 Lymph # (Auto) 1.6 K/uL (1.0-4.3) 07/04/18 04:52 [place] # (Auto) 0.6 K/uL (0.0-0.8) 07/04/18 04:52 Eos # (Auto) 0.2 K/uL (0.0-0.7) 07/04/18 04:52 Baso # (Auto) 0.0 K/uL (0.0-0.2) 07/04/18 04:52 Neutrophils % (Manual) 82 % (42-75) H 07/03/18 20:45 Lymphocytes % (Manual) 11 % (20-50) L 07/03/18 20:45 Monocytes % (Manual) 6 % (0-10) 07/03/18 20:45 Eosinophils % (Manual) 1 % (0-7) 07/03/18 20:45 Platelet Estimate Normal (NORMAL) 07/03/18 20:45 RBC Morphology Normal (NORMAL) 07/03/18 20:45 PT 18.3 Seconds (9.8-13.1) H 07/04/18 04:52 INR 1.6 07/04/18 04:52 APTT 39.2 Seconds (25.6-37.1) H 07/04/18 04:52 pO2 31 mm/Hg (30-55) 07/03/18 20:45 VBG pH 7.41 (7.32-7.43) 07/03/18 20:45 VBG pCO2 50 mmHg (40-60) 07/03/18 20:45 VBG HCO3 28.4 mmol/L 07/03/18 20:45 VBG Total CO2 33.2 mmol/L (22-28) H 07/03/18 20:45 VBG O2 Sat (Calc) 63.9 % (40-65) 07/03/18 20:45 VBG Base Excess 5.8 mmol/L (0.0-2.0) H 07/03/18 20:45 VBG Potassium 3.8 mmol/L (3.6-5.2) 07/03/18 20:45 Sodium 127.0 mmol/L (132-148) L 07/03/18 20:45 Chloride 91.0 mmol/L (98-107) L 07/03/18 20:45 Glucose 208 mg/dL (75-110) H 07/03/18 20:45 Lactate 2.8 mmol/L (0.7-2.1) H 07/03/18 20:45 FiO2 21.0 % 07/03/18 20:45 Sodium 132 mmol/l (132-148) 07/04/18 04:52 Potassium 3.4 MMOL/L (3.6-5.0) L 07/04/18 04:52 Chloride 92 mmol/L (98-107) L 07/04/18 04:52 Carbon Dioxide 31 mmol/L (22-30) H 07/04/18 04:52 Anion Gap 12 (10-20) 07/04/18 04:52 BUN 5 mg/dl (9-20) L 07/04/18 04:52 Creatinine 0.5 mg/dl (0.8-1.5) L 07/04/18 04:52 Est GFR ( Amer) > 60 07/04/18 04:52 Est GFR (Non-Af Amer) > 60 07/04/18 04:52 POC Glucose (mg/dL) 276 mg/dL (65-110) H 07/04/18 12:07 Random Glucose 125 mg/dL (75-110) H 07/04/18 04:52 Calcium 8.7 mg/dL (8.4-10.2) 07/04/18 04:52 Total Bilirubin 0.6 mg/dl (0.2-1.3) 07/03/18 20:45 AST 19 U/L (17-59) 07/03/18 20:45 ALT 17 U/L (21-72) L 07/03/18 20:45 Alkaline Phosphatase 50 U/L (38-126) 07/03/18 20:45 Troponin I < 0.0120 ng/mL (0.00-0.120) 07/03/18 20:45 NT-Pro-B Natriuret Pep 599 pg/ml (0-900) 07/03/18 20:45 Total Protein 6.9 G/DL (6.3-8.2) 07/03/18 20:45 Albumin 3.9 g/dL (3.5-5.0) 07/03/18 20:45 Globulin 2.9 gm/dL (2.2-3.9) 07/03/18 20:45 Albumin/Globulin Ratio 1.3 (1.0-2.1) 07/03/18 20:45 TSH 3rd Generation 2.40 mIU/ML (0.46-4.68) 07/03/18 23:14 Venous Blood Potassium 3.8 mmol/L (3.6-5.2) 07/03/18 20:45 Urine Color Yellow (YELLOW) 07/03/18 21:05 Urine Clarity Slighty-cloudy (Clear) 07/03/18 21:05 Urine pH 7.0 (5.0-8.0) 07/03/18 21:05 Ur Specific [place] 1.013 (1.003-1.030) 07/03/18 21:05 Urine Protein Negative mg/dL (NEGATIVE) 07/03/18 21:05 Urine Glucose (UA) Neg mg/dL (NEGATIVE) 07/03/18 21:05 Urine Ketones Negative mg/dL (NEGATIVE) 07/03/18 21:05 Urine Blood Negative (NEGATIVE) 07/03/18 21:05 Urine Nitrate Negative (NEGATIVE) 07/03/18 21:05 Urine Bilirubin Negative (NEGATIVE) 07/03/18 21:05 Urine Urobilinogen 0.2-1.0 mg/dL (0.2-1.0) 07/03/18 21:05 Ur Leukocyte Esterase Trace Edie/uL (Negative) 07/03/18 21:05 Urine RBC (Auto) 1 /hpf (0-3) 07/03/18 21:05 Urine Microscopic WBC 6 /hpf (0-5) H 07/03/18 21:05 Ur Squamous Epith Cells < 1 /hpf (0-5) 07/03/18 21:05 Amorphous Sediment Few /ul (<OCC) H 07/03/18 21:05 Urine Bacteria Few (<OCC) H 07/03/18 21:05 Attending/Attestation - Attestation I have personally seen and examined this patient.: Yes I have fully participated in the care of the patient.: Yes I have reviewed all pertinent clinical information, including history, physical exam and plan: Yes Notes (Text): Diagnoses: Weakness prob due to Dehydration Episode of Vomiting ( once) w/c resolved Chronic Atrial Fibrillation , rate controlled Subtherapeutic INR Chronic Left Heel Ulcer prob due to DM DM type II Hyponatremia Hypokalemia Dementia, prob Alzheimer's , chronic HTN - IVF hydration, diuretics held, advised pt to hold Dyazide for 1 more day - pt had episode of vomiting at home w/c resolved, tolerated Po diet while in the hospital, no abd pain - pt had no fever, no leukocytosis, denies any sxs, no dysuria -ECHO done- ff up result with Dr Lon Chau - INR 1.7 , extra dose of Coumadin given, advised pt to continue with previous and ff up with Dr Lon Chau - pt sees his [facility] every week for wound care - advised pt to keep his appt next wk - KCl given - cont home meds - PT consulted - rec Home PT - will consult [facility] - Pt feels fine and want to go home return to ED if sxs recurs - Home RN and Home PT
[2018-07-04 16:10] VITALS: BP 154/71; PULSE 83; RESP 16; TEMP 97.7
[2018-07-04] MEDS ORDERED: Cefdinir 300 MG CAP PO SCH (17:00)
[2018-07-05 03:37] VITALS: O2SAT 95
--- NOTE | 2018-07-06 07:45 | CARD ---
APPROVED REPORT Date of service: 07/04/2018 EXAM: Two-dimensional and M-mode echocardiogram with Doppler and color Doppler. Other Information Quality : AverageRhythm : Atrial Fibrillation INDICATION 2D DIMENSIONS IVSd1.42 (0.7-1.1cm)LVDd4.60 (3.9-5.9cm) LVOT Diameter2.10 (1.8-2.4cm)PWd1.58 (0.7-1.1cm) IVSs1.48 (0.8-1.2cm)LA Utwncq19 (18-58mL) LVDs3.34 (2.5-4.0cm)FS (%) 27.4 % PWs1.51 (0.8-1.2cm) M-Mode DIMENSIONS Left Atrium (MM)5.36 (2.5-4.0cm)Aortic Root3.44 (2.2-3.7cm) Aortic Cusp Exc.2.45 (1.5-2.0cm) Aortic Valve AoV Peak Whpebscw568.5cm/sAoV VTI23.3cmAO Peak GR.7mmHg LVOT Peak Niwnncxy04.5cm/sLVOT VTI18.08cmAO Mean GR.4mmHg MARQUIS (VMAX)1.91li0PMS (VTI)1.27cm2 Mitral Valve MV E Peak Gr.47mmHgMV DECEL [id number] E/A ratio0.0MVA (PHT)1.75cm2 TDI E/Lateral E'0.0E/Medial E'0.0 Tricuspid Valve TR Peak [id number]/sRAP [id number] Peak Gr.25mmHg [id number] LEFT VENTRICLE The left ventricle is normal size. There is normal left ventricular wall thickness. Left ventricle systolic function is normal. LVEF is 55-60%. There is normal LV segmental wall motion. LV diastolic function could not be assesed due to A Fib RIGHT VENTRICLE The right ventricle is normal size. There is normal right ventricular wall thickness. The right ventricular systolic function is normal. ATRIA The left atrium is mildly dilated. The right atrium is mildly dilated. AORTIC VALVE The aortic valve is normal in structure. No aortic regurgitation is present. There is no aortic valvular stenosis. MITRAL VALVE The mitral valve is normal in structure. There is no evidence of mitral valve prolapse. There is no mitral valve stenosis. Mitral regurgitation is mild. TRICUSPID VALVE The tricuspid valve is normal in structure. There is moderate tricuspid regurgitation. Right ventricular systolic pressure is estimated at 46 mmHg. There is mild-moderate pulmonary hypertension. PULMONIC VALVE The pulmonary valve is normal in structure. There is no pulmonic valvular regurgitation. GREAT VESSELS The aortic root is normal in size. The IVC is dilated. The IVC collapses <50% with inspiration. PERICARDIAL EFFUSION The pericardium appears normal. <Conclusion> The echo window was poor resulting in suboptimal images. The left ventricle is normal size. There is normal left ventricular wall thickness. There is normal LV segmental wall motion. Left ventricle systolic function is normal. LVEF is 55-60%. The left atrium is mildly dilated. The right atrium is mildly dilated. There is mild-moderate pulmonary hypertension. The IVC is dilated. The IVC collapses <50% with inspiration.
== END 2018-07-04 18:10 | disposition home or self-care (01) ==
LOC: H.ER 18:52 → H.ERHOLD 21:49 → H.TEL 07-04 00:23
PROVIDERS: ADMIT Internal Medicine; ATTEND Internal Medicine
DX: E86.0 Dehydration (principal); E87.1 Hypo-osmolality and hyponatremia; E87.6 Hypokalemia; E11.65 Type 2 diabetes mellitus with hyperglycemia; I48.2 Chronic atrial fibrillation; E11.621 Type 2 diabetes mellitus with foot ulcer; L97.429 Non-pressure chronic ulcer of left heel and midfoot with unspecified severity; G30.9 Alzheimer's disease, unspecified; F02.80 Dementia in other diseases classified elsewhere, unspecified severity, without behavioral disturbance, psychotic disturbance, mood disturbance, and anxiety; I11.0 Hypertensive heart disease with heart failure; I50.9 Heart failure, unspecified; R26.81 Unsteadiness on feet; R29.6 Repeated falls; R79.1 Abnormal coagulation profile; R11.2 Nausea with vomiting, unspecified; E78.5 Hyperlipidemia, unspecified; I45.10 Unspecified right bundle-branch block; N40.1 Benign prostatic hyperplasia with lower urinary tract symptoms; N39.498 Other specified urinary incontinence; Z79.01 Long term (current) use of anticoagulants; Z79.84 Long term (current) use of oral hypoglycemic drugs; Z87.891 Personal history of nicotine dependence
CPT/HCPCS: 36415; 70450; 71045; 80048; 80053; 81003; 82803; 82948; 83036; 83880; 84145; 84443; 84484; 85025; 85610; 85730; 87040; 87086; 93306; 96360; 97162; 99284; G0378; G8978; G8979; J7030